=== PATIENT | male | born 1960 | race Caucasian/White ===

== ENCOUNTER 2022-08-01 10:07 | Emergency (ER) | payer OTHER ==
[2022-08-01 10:49] LABS: ANION GAP 13.2 mmol/L (5-15); CHLORIDE,CL 100 mmol/L (98-107); ESTIMATED GFR 101 mL/min (>=60); SODIUM,NA 139 mmol/L (136-145)
[2022-08-01 11:12] LABS: CORONAVIRUS COVID-19 NAA NEGATIVE (NEGATIVE)
[2022-08-01 11:13] VITALS: BP 127/86; PULSE 105
== END 2022-08-01 12:10 | disposition home or self-care (01) ==
LOC: VM.ED 10:07
DX: J20.9 Acute bronchitis, unspecified (principal); Z20.822 Contact with and (suspected) exposure to COVID-19
CPT/HCPCS: 0240U; 36415; 71046; 80053; 85025; 86140; 99283